=== PATIENT | male | born 1960 | race Caucasian/White ===

== ENCOUNTER 2017-03-25 12:36 | Inpatient (IN) | payer OTHER ==
[2017-03-25] VITALS (14 sets, daily range): BP systolic 122–141; BP diastolic 77–85; PULSE 75–92; RESP 16–20; TEMP 98–98.3; O2SAT 96–98
[~2017-03-25] VITALS: Ht 170.2 cm; Wt 123.5 kg
[2017-03-25] MEDS ORDERED: HEPARIN SODIUM - IV 10,000 UNITS/10 ML VIAL IV ONE (12:45)
--- NOTE | 2017-03-25 12:50 | PD ---
HPI Chief Complaint: STEMI Alert Time Seen by Provider: 12:40 Travel History International Travel<30 days: No Contact w/Intl Traveler<30days: No Traveled to known affect area: No History of Present Illness HPI 56 years old male complains of chest pain. Patient states that it gets pain started about 45 minutes prior to arrival. Patient was chopping wood when it happened. Patient stated the pain did of left sided chest pain substernal chest pressure without radiation. Patient denies palpitation. Patient states that he has nausea and diaphoresis with chest pain. Patient denies history of CAD. Patient denies history hypertension, diabetes, hyperlipidemia. Patient is a nonsmoker. Patient has family history of heart disease. Patient states that he has not seen a physician for time. Patient is not on any routine medication. Patient allergic to any medication. EMS was called. Patient was given aspirin 81 mg 3. Patient was given nitroglycerin sublingual 3. On a scale of 1-10 the chest pain is a 6. PFSH Social History Tobacco Use: No Allergies-Medications (Allergen,Severity, Reaction): Coded Allergies: No Known Allergies (Unverified , 03/25/17) Reported Meds & Prescriptions Reported Meds & Active Scripts Active No Active Prescriptions or Reported Medications Review of Systems General / Constitutional: No: Fever Eyes: No: Visual changes HENT: No: Headaches Cardiovascular: Positive: Chest Pain or Discomfort Respiratory: No: Shortness of Breath Genitourinary: No: Dysuria Musculoskeletal: No: Pain Skin: No Rash Neurologic: No: Weakness Psychiatric: No: Depression Endocrine: No: Polydipsia Hematologic/Lymphatic: No: Easy Bruising Physical Exam Narrative GENERAL: Well-nourished, well-developed patient. SKIN: Focused skin assessment warm/dry. HEAD: Normocephalic. EYES: No scleral icterus. No injection or drainage. NECK: Supple, trachea midline. No JVD or lymphadenopathy. CARDIOVASCULAR: Regular rate and rhythm without murmurs, gallops, or rubs. RESPIRATORY: Breath sounds equal bilaterally. No accessory muscle use. GASTROINTESTINAL: Abdomen soft, non-tender, nondistended. MUSCULOSKELETAL: No cyanosis, or edema. BACK: Nontender without obvious deformity. No CVA tenderness. Neurologic exam normal. Data Data Last Documented VS Vital Signs Date Time Temp Pulse Resp B/P (MAP) Pulse Ox O2 Delivery O2 Flow Rate FiO2 03/25/17 12:40 98 Nasal Cannula 2.00 03/25/17 12:40 74 03/25/17 12:39 98.3 16 128/78 (95) Orders Orders Troponin I (03/25/17 12:40) Ckmb (Isoenzyme) Profile (03/25/17 12:40) Complete Blood Count With Diff (03/25/17 12:40) I-Stat Profile (03/25/17 12:40) I-Stat Creatinine (03/25/17 12:40) Calcium (03/25/17 12:40) Magnesium (Mg) (03/25/17 12:40) Prothrombin Time / Inr (Pt) (03/25/17 12:40) Act Partial Throm Time (Ptt) (03/25/17 12:40) B-Type Natriuretic Peptide (03/25/17 12:40) Chest, Single Ap (03/25/17 12:40) Electrocardiogram (03/25/17 12:40) Oxygen Administration (03/25/17 12:40) Iv Access Insert/Monitor (03/25/17 12:40) Oximetry (03/25/17 12:40) Heparin Inj (Heparin Inj) (03/25/17 12:45) Cbc No Diff, Includes Plts (03/28/17 06:00) Admit Order (Ed Use Only) (03/25/17 12:50) Potassium Chlor 20 Meq Premix (Kcl 20 Me (03/25/17 13:00) CKMB (03/25/17 12:43) CKMB% (03/25/17 12:43) Labs Laboratory Tests Test 03/25/17 12:43 White Blood Count 5.5 TH/MM3 Red Blood Count 4.74 MIL/MM3 Hemoglobin 14.4 GM/DL Bedside Hemoglobin 14.3 G/DL Hematocrit 41.5 % Bedside Hematocrit 42.0 % Mean Corpuscular Volume 87.6 FL Mean Corpuscular Hemoglobin 30.3 PG Mean Corpuscular Hemoglobin Concent 34.6 % Red Cell Distribution Width 13.7 % Platelet Count 204 TH/MM3 Mean Platelet Volume 8.4 FL Neutrophils (%) (Auto) 42.2 % Lymphocytes (%) (Auto) 36.9 % Monocytes (%) (Auto) 12.0 % Eosinophils (%) (Auto) 7.7 % Basophils (%) (Auto) 1.2 % Neutrophils # (Auto) 2.3 TH/MM3 Lymphocytes # (Auto) 2.0 TH/MM3 Monocytes # (Auto) 0.7 TH/MM3 Eosinophils # (Auto) 0.4 TH/MM3 Basophils # (Auto) 0.1 TH/MM3 CBC Comment DIFF FINAL Differential Comment Prothrombin Time 9.9 SEC Prothromb Time International Ratio 1.0 RATIO Activated Partial Thromboplast Time 20.4 SEC Bedside Sodium 143 MMOL/L Bedside Potassium 3.1 MMOL/L Bedside Chloride 102 MMOL/L Bedside Blood Urea Nitrogen 9 MG/DL Bedside Creatinine 0.8 MG/DL Bedside Glucose 150 MG/DL Calcium Level 7.9 MG/DL Magnesium Level 1.8 MG/DL Total Creatine Kinase 258 U/L Creatine Kinase MB 1.2 NG/ML Troponin I 0.05 NG/ML B-Type Natriuretic Peptide 11 PG/ML [facility] Medical Decision Making Medical Screen Exam Complete: Yes Emergency Medical Condition: Yes Interpretation(s) EKG show ST elevation in anterior leads and ST depression and T-wave inversion in inferior leads. Differential Diagnosis Differential diagnosis including STEMI. Narrative Course 56 years with chest pain. EKG consistent with STEMI. Patient was given aspirin 81 mg 3 by EMS. Patient was given Nitrol sublingual 3 by EMS. STEMI alert was called. I spoke with statistics manager Dr. Zamora. Patient was given heparin 4000 units IV given. Aspirin 81 mg 1. Nitro paste 1 inch on chest wall. Morphine 2 mg IV. Patient will be transferred to catheter lab immediately. Potassium 3.1. Patient was given KCl 20 mEq equivalent IV given. Diagnosis Primary Impression: STEMI (ST elevation myocardial infarction) Qualified Codes: I21.3 - ST elevation (STEMI) myocardial infarction of unspecified site Additional Impression: Hypokalemia Admitting Information Admitting Physician Requests: Admit Scripts No Active Prescriptions or Reported Meds Mt Houser MD Mar 25, 2017 12:50
[2017-03-25 12:58] LABS: AUTOMATED NEUTROPHIL # 2.3 TH/MM3 (1.8-7.7); BASOPHIL # 0.1 TH/MM3 (0-0.2); BASOPHIL % 1.2 % (0.0-2.0); EOSINOPHIL # 0.4 TH/MM3 (0-0.4); EOSINOPHIL % 7.7 % (0.0-4.0); HEMATOCRIT 41.5 % (39.0-51.0); HEMOGLOBIN 14.4 GM/DL (13.0-17.0); LYMPH % 36.9 % (9.0-44.0); MEAN CELL VOLUME 87.6 FL (80.0-100.0); MEAN CORPUSCULAR HEMOGLOBIN 30.3 PG (27.0-34.0); MEAN CORPUSCULAR HGB CONC 34.6 % (32.0-36.0); MEAN PLATELET VOLUME 8.4 FL (7.0-11.0); MONOCYTE # 0.7 TH/MM3 (0-0.9); NEUT % 42.2 % (16.0-70.0); PLATELET COUNT 204 TH/MM3 (150-450); RED BLOOD COUNT 4.74 MIL/MM3 (4.50-5.90); RED CELL DISTRIBUTION WIDTH 13.7 % (11.6-17.2); WHITE BLOOD COUNT 5.5 TH/MM3 (4.0-11.0)
[2017-03-25] MEDS ORDERED: POTASSIUM CHLOR 20 MEQ PREMIX 100 ML IV ONE (13:00)
[2017-03-25] MEDS ORDERED: NITROGLYCERIN 2% OINT 1 GM PACKET TOPICAL ONE (13:00)
[2017-03-25] MEDS ORDERED: ASPIRIN 81 MG CHEW TAB CHEW ONE (13:00)
[2017-03-25 13:12] LABS: PROTHROMBIN TIME - PATIENT 9.9 SEC (9.8-11.6)
--- NOTE | 2017-03-25 13:13 | RADRPT ---
EXAM DATE/TIME: 03/25/2017 12:44 [facility] COMPARISON: No previous studies available for comparison. INDICATIONS : Stemi alert. MEDICAL HISTORY : Unobtainable. SURGICAL HISTORY : Unobtainable. ENCOUNTER: Initial ACUITY: 1 day PAIN SCORE: Non-responsive. LOCATION: Bilateral chest FINDINGS: The heart is enlarged. Mild central pulmonary vascular congestion is noted. No focal alveolar consoli dation is noted. CONCLUSION: 1. Cardiomegaly. 2. Mild central pulmonary congestion. Lavon Rowland MD on March 25, 2017 at 13:10 Board Certified Radiologist. This report was verified electronically.
[2017-03-25] MEDS ORDERED: MORPHINE SULFATE 2 MG/ML INJ IV PUSH ONE (13:15)
[2017-03-25 13:19] LABS: CALCIUM 7.9 MG/DL (8.5-10.1); MAGNESIUM 1.8 MG/DL (1.5-2.5)
[2017-03-25] MEDS ORDERED: MIDAZOLAM HCL 2 MG/2 ML VIAL ONE ×3 (13:19→14:13)
[2017-03-25] MEDS ORDERED: HEPARIN-NS/PF INJ 1,000 ML ONE (13:19)
[2017-03-25] MEDS ORDERED: BIVALIRUDIN 250 MG VIAL ONE (13:19)
[2017-03-25 13:22] LABS: TROPONIN I 0.05 NG/ML (0.02-0.05)
[2017-03-25] MEDS ORDERED: STERILE WATER FOR INJECTION 10 ML VIAL ONE (14:04)
[2017-03-25] MEDS ORDERED: CANGRELOR TETRASODIUM 50,000 MCG VIAL ONE ×2 (14:04→16:28)
[2017-03-25] MEDS ORDERED: FUROSEMIDE 40 MG/4 ML VIAL ONE (14:07)
[2017-03-25] MEDS ORDERED: TICAGRELOR 90 MG TAB PO ONE ×3 (14:20→17:00)
[2017-03-25] MEDS ORDERED: ONDANSETRON HCL 4 MG/2 ML VIAL IV PUSH PRN (14:30)
[2017-03-25] MEDS ORDERED: CANGRELOR INJ 50,000 MCG in SODIUM CHLOR 0.9% 250 ML INJ 250 ML IV ONE (14:30)
[2017-03-25] MEDS ORDERED: MISC INFORMATION XX ONE (14:30)
[2017-03-25] MEDS ORDERED: ATROPINE SULFATE 1 MG/ML VIAL IV PUSH PRN (14:30)
--- NOTE | 2017-03-25 14:30 | PD.CONS ---
HPI Consult Requested By Primary Care Physician Unknown History of Present Illness 56 years old male complains of chest pain. Patient states that it gets pain started about 45 minutes prior to arrival. Patient was chopping wood when it happened. Patient stated the pain did of left sided chest pain substernal chest pressure without radiation. Patient denies palpitation. Patient states that he has nausea and diaphoresis with chest pain. Patient denies history of CAD. Patient denies history hypertension, diabetes, hyperlipidemia. Patient is a nonsmoker. Patient has family history of heart disease. Patient states that he has not seen a physician for time. Patient is not on any routine medication. Patient allergic to any medication. EMS was called. Patient was given aspirin 81 mg 3. Patient was given nitroglycerin sublingual 3. On a scale of 1-10 the chest pain is a 6. EKG anterior ST elevation. STEMI alert activated Review of Systems Consitutional: DENIES: Fatigue, Fever, Chills, Weight gain, Weight loss Eyes: DENIES: Amaurosis Fugax, Change in vision HEENT: DENIES: Lightheadedness, Change in hearing Respiratory: DENIES: See HPI, Cough, Snoring, Shortness of breath, Wheezing, Sputum production Cardiovascular: COMPLAINS OF: See HPI, Chest pain, DENIES: Palpitations, Syncope, Tachycardia Gastrointestinal: DENIES: Nausea, Vomiting, Change in bowel habits, Reflux, Bloody stools, Melena Genitourinary: DENIES: Urinary incontinence, Difficulty voiding Integumentary: DENIES: Rash Neurologic: DENIES: Tingling or numbness, Memory problems, Poor Balance, Stroke symptoms Musculoskeletal: DENIES: Joint pain, Muscle pain, Limited range of motion, Back pain Psychiatric: DENIES: Anxiety, Depression, Sleep disturbances Hematologic: DENIES: Bruising tendencies, Bleeding tendencies Endocrine: DENIES: Weight gain, Weight loss, Thyroid disease Past Family Social History Allergies: Coded Allergies: No Known Allergies (Unverified , 03/25/17) Reported Medications Reported Meds & Active Scripts Active No Active Prescriptions or Reported Medications Active Ordered Medications Current Medications Medications (Trade) Dose Ordered Sig/Leda Route Start Time Stop Time Status Last Admin Potassium Chloride 100 ml @ 50 mls/hr BOLUS ONCE IV 03/25/17 13:00 03/25/17 14:59 03/25/17 13:13 Physical Exam Vital Signs Vital Signs Date Time Temp Pulse Resp B/P (MAP) Pulse Ox O2 Delivery O2 Flow Rate FiO2 03/25/17 13:20 03/25/17 13:14 87 16 141/77 (98) 98 Nasal Cannula 2.00 03/25/17 12:40 98 Nasal Cannula 2.00 03/25/17 12:40 74 03/25/17 12:39 98.3 75 16 128/78 (95) 98 Physical Exam GENERAL: Well-nourished, well-developed patient. SKIN: Warm and dry. HEAD: Normocephalic. EYES: No scleral icterus. No injection or drainage. NECK: Supple, trachea midline. No JVD or lymphadenopathy. CARDIOVASCULAR: Regular rate and rhythm without murmurs, gallops, or rubs. RESPIRATORY: Breath sounds equal bilaterally. No accessory muscle use. GASTROINTESTINAL: Abdomen soft, non-tender, nondistended. EXTREMITIES: No cyanosis, or edema. NEUROLOGICAL: Awake, alert, and oriented x 3. Non-focal. Laboratory Laboratory Tests Test 03/25/17 12:43 White Blood Count 5.5 Red Blood Count 4.74 Hemoglobin 14.4 Bedside Hemoglobin 14.3 Hematocrit 41.5 Bedside Hematocrit 42.0 Mean Corpuscular Volume 87.6 Mean Corpuscular Hemoglobin 30.3 Mean Corpuscular Hemoglobin Concent 34.6 Red Cell Distribution Width 13.7 Platelet Count 204 Mean Platelet Volume 8.4 Neutrophils (%) (Auto) 42.2 Lymphocytes (%) (Auto) 36.9 Monocytes (%) (Auto) 12.0 Eosinophils (%) (Auto) 7.7 Basophils (%) (Auto) 1.2 Neutrophils # (Auto) 2.3 Lymphocytes # (Auto) 2.0 Monocytes # (Auto) 0.7 Eosinophils # (Auto) 0.4 Basophils # (Auto) 0.1 CBC Comment DIFF FINAL Differential Comment Prothrombin Time 9.9 Prothromb Time International Ratio 1.0 Activated Partial Thromboplast Time 20.4 Bedside Sodium 143 Bedside Potassium 3.1 Bedside Chloride 102 Bedside Blood Urea Nitrogen 9 Bedside Creatinine 0.8 Bedside Glucose 150 Calcium Level 7.9 Magnesium Level 1.8 Total Creatine Kinase 258 Creatine Kinase MB 1.2 Troponin I 0.05 B-Type Natriuretic Peptide 11 Result Diagram: 03/25/17 1243 Imaging Last Impressions Chest X-Ray 03/25/17 1240 Signed Impressions: Service Date/Time: Saturday, March 25, 2017 12:44 - CONCLUSION: 1. Cardiomegaly. 2. Mild central pulmonary congestion. Lavon Rowland MD Assessment and Plan Problem List: (1) STEMI (ST elevation myocardial infarction) ICD Codes: I21.3 - ST elevation (STEMI) myocardial infarction of unspecified site Status: Acute Plan: Active Cath Team for emergent PCI Keep NPO Heparin, ASA, Nitrates, Supplemental O2 Risk benefits of LHC +/- PCI explained. He agrees to proceed Further management to be determine (2) Hypokalemia ICD Codes: E87.6 - Hypokalemia Status: Acute Problem Qualifiers (1) STEMI (ST elevation myocardial infarction): Qualified Codes: I21.3 - ST elevation (STEMI) myocardial infarction of unspecified site Sae Dozier MD Mar 25, 2017 14:30
--- NOTE | 2017-03-25 14:40 | CATHPROC ---
[facility] Report Study Information Study Number Admission Scheduled Start Study Start [id number] Mar 25 2017 12:53PM 03/25/2017 Mar 25 2017 1:12PM [place] Service Cardiac Catheterization Admit Source Facility Department Emergency department [facility] - [facility] [employer] Operator Physician and Clinical Staff Initial Sae Lara Operator/Assistant Foreman Sherrie Novoa BSN Operator/Assistant Foreman Sheri Duron,SOPHY Recorder Calli Delaney,RT(R) (BS) Scrub Juan ChaRT(R) Procedures Performed Procedure Location (Site) Vessel Name Coronary Angiograms LCA Left Coronary Coronary Angiograms RCA Right Coronary Drug Eluting Inflatio LAD Prox Left Coronary PTCA DIAG Ost Left Coronary PTCA LAD Prox Left Coronary Wire insertion Fem Art (right) Femoral Art Equipment Time Bean Picker Machine Operator Description Size Mfg Part Number Used/Scraped PERCLOSE, PRO GLIDE CLOSER 14:18 [employer] FR 6 [id number] *[id number] Used DEVICE WIRE, BALANCE MIDDLEWEIGHT [id number] 13:55 [employer] 190CM Used 190CM *[id number] TRANSDUCER, TRUWAVE [id number] 13:32 QUINTANILLA FOSTER * Used W/STOCKCOCK *[id number] INTRODUCER SET, 13:32 [employer] FR 5 [id number] *[id number] Used MICROPUNCTURE, STIFFENED INTRODUCER SET, 13:44 [employer] FR 5 [id number] *[id number] Used MICROPUNCTURE, STIFFENED [id number] *[id number] 13:32 [employer] PACK, CCL CUSTOM * Used *[id number] 13:50 [employer] BALLOON, 2.5 X 6MM EUPHORA 6MM Used *[id number] 13:56 [employer] STENT, 3.0 15MM LOU 3.0 15MM Used *[id number] 13:37 [employer]/AVE EBU 3.5 Z2 GUIDE CATHETER FR 6 Used *[id number] 14:02 Estate Assist MEDICAL 30 KENNETH INDEFLATOR Used *[id number] 13:54 [employer] 30 KENNETH INDEFLATOR Used *[id number] 13:32 Estate Assist MEDICAL WIRE, 3MMJ .035 180CM 180CM Used *[id number] 13:32 [facility], 4 PORT * Used *[id number] 13:32 [employer] OMNIPAQUE, 350 MG, 150ML 150ML [id number] Used 14:03 [employer] OMNIPAQUE, 350 MG, 50ML 50ML [id number] Used 14:26 [employer] OMNIPAQUE, 350 MG, 50ML 50ML [id number] Used [id number] 13:32 [employer],WARM AIR CCL * Used *[id number] 13:47 [employer] SHEATH, FR6 TERUMO (10CM) FR 6 Used *[id number] WIRE, RUNTHROUGH NS FLOPPY [id number] 13:49 [employer]ICAL 180CM Used .014 180CM *[id number] Equipment Model, Serial, Lot Number and Expiration Data Description Model Number Serial Number Lot Number Expiration Date INTRODUCER SET, [id number] 02-02-2020 MICROPUNCTURE, STIFFENED STENT, 3.0 15MM LOU [id number] 11-05-2018 History: Current Medications Medication Dosage/Unit Route Frequency Last Date/Time Taken ASA NTG SL NTG Patch HEPARIN History: Allergies Allergy Reaction No Known Allergies History: Risk Factors Family History of Hypertension Dyslipidemia Previous [facility] Previous Heart Failure Premature CAD No No Yes No No Prior Valve Prior PCI Prior CABG Surgery No No No Cerebrovascular Peripheral Artery Chronic Lung On Dialysis Diabetes Disease Disease Disease No No No No No History: Symptoms/Diagnosis Selection Items Chest pain History: Stress Tests Stress or Imaging Studies Performed No History: Other Current Smoker No Labs Hgb (g/dl) Hct (%) RBC (MIL/MM3) WBC (l/cumm) Platelets (thousands) 11.60-17.00 35.00-51.00 4.00-5.90 4.00-11.00 150.00-450.00 14.4 41.5 4.4 5.5 204 Glucose (mg/dl) BUN (mg/dl) Creatinine (mg/dl) BUN:Creatinine (1:x) 74.00-106.00 7.00-18.00 0.50-1.30 10.00-20.00 150 9 0.8 11.3 Na (meq/l) K (meq/l) Cl (meq/l) Ca (mg/dl) 136.00-145.00 3.50-5.10 98.00-107.00 8.50-10.10 143 3.1 102 7.9 INR (PTT:PT) 0.90-1.10 1 Troponin I (ng/ml) CPK-MB (ng/ML) 0.02-0.05 0.50-3.60 0.05 1.2 Medication Medication Total Dose (Bolus/Oral) Medication Total Dosage/Unit 1% XYLOCAINE 20 mL BRILINTA 180 mg FENTANYL 150 mcg HEPARIN 9100 units LASIX 40 mg VERSED 7 mg Medications (Bolus/Oral) Medication Time Given Dosage/Unit Administered By Reason 1% XYLOCAINE 03/25/2017 1:40:00 PM 20 mL Zamora-Zain, Sae 20 mL 1% XYLOCAINE given in lab by ChesterZain Sae in Right Groin via Subcutaneous. VERSED 03/25/2017 1:40:45 PM 2 mg Sommer Sherrie 2 mg VERSED given in lab by Sherrie Novoa BSN in Left Hand via Peripheral IV. FENTANYL 03/25/2017 1:41:53 PM 50 mcg Sherrie Novoa 50 mcg FENTANYL given in lab by Sherrie Novoa BSN in Left Hand via Peripheral IV. VERSED 03/25/2017 1:45:35 PM 1 mg Sommer Sherrie 1 mg VERSED given in lab by Sherrie Novoa BSN in Left Hand via Peripheral IV. FENTANYL 03/25/2017 1:46:50 PM 25 mcg Sherrie Novoa 25 mcg FENTANYL given in lab by Sherrie Novoa BSN in Left Hand via Peripheral IV. HEPARIN 03/25/2017 1:50:21 PM 9100 units Sherrie Novoa 9100 units HEPARIN given in lab by Sherrie Novoa BSN in Left Hand via Peripheral IV. VERSED 03/25/2017 1:59:29 PM 2 mg Alida Novoaanda 2 mg VERSED given in lab by Sherrie Novoa BSN in Left Hand via Peripheral IV. FENTANYL 03/25/2017 1:59:53 PM 25 mcg Sommer Sherrie 25 mcg FENTANYL given in lab by Sherrie Novoa BSN in Left Hand via Peripheral IV. VERSED 03/25/2017 2:01:01 PM 1 mg Sherrie Novoa 1 mg VERSED given in lab by Sherrie Novoa BSN in Left Hand via Peripheral IV. FENTANYL 03/25/2017 2:07:18 PM 50 mcg Sherrie Novoa 50 mcg FENTANYL given in lab by Sherrie Novoa BSN in Left Hand via Peripheral IV. LASIX 03/25/2017 2:08:52 PM 40 mg Sherrie Novoa 40 mg LASIX given in lab by Sherrie Novoa BSN in Left Hand via Peripheral IV. VERSED 03/25/2017 2:15:21 PM 1 mg Sherrie Novoa 1 mg VERSED given in lab by Sherrie Novoa BSN in Left Hand via Peripheral IV. BRILINTA 03/25/2017 2:40:39 PM 180 mg Sherrie Novoa 180 mg BRILINTA given in lab by Sherrie Novoa BSN via Oral. Medication (Drip) Medication Time Given Dosage/Unit Concentration/Unit Diluent (ml) Solution IV Solutions 03/25/2017 1:30:19 PM 0 mL (IV) 1000 NaCl .9 Patient arrived on IV Solutions in Left Hand via Peripheral IV. Pump/Drip Flow = 30 ml/hr using NaCl .9. KENGREAL BOLUS 03/25/2017 2:24:23 PM 19.5 mL 19.5 mL KENGREAL BOLUS given in lab by Sherrie Novoa BSN in Left Hand via Peripheral IV. KENGREAL DRIP 03/25/2017 2:24:33 PM 4 mcg/kg/min 50 mg 250 NaCl .9 4 mcg/kg/min KENGREAL DRIP given in lab by Sherrie Novoa BSN in Left Hand via Peripheral IV. P ump/Drip Flow = 156 ml/hr using NaCl .9 with a concentration of 50 mg in 250 ml. POTASSIUM DRIP 03/25/2017 1:30:19 PM 5 meq/hr 20 meq 100 D5W .9 NaCl Patient arrived on 5 meq/hr POTASSIUM DRIP. Pump/Drip Flow = 25 ml/hr using D5W .9 NaCl with a concen tration of 20 meq in 100 ml. Initial Case Assessment Cardiovascular HR Rhythm NIBP Chest Pain 84 reg 154/89 6 Edema Present Skin color Skin None Normal Warm Dry Circulatory - Right Pulses Dorsalis Pedis Femoral 2 2 Scale (0,1,2,3,4,d) Circulatory - Left Pulses Dorsalis Pedis Femoral 2 2 Scale (0,1,2,3,4,d) Circulatory - Lower Extremities Color Lower Right Color Lower Left Normal Normal Neurological State Oriented to time-place- Alert Moves all extremities person Respiration - General Respiration Rate SpO2 (%) O2 (lpm) (B/min) 10 99 2 Chronological Log Time Study Chronological Log 13:16:26 Emergency Room notified that Digital Color Press Operator is ready. 13:23:45 Patient arrived via Bed. 13:24:10 Disposable Defibrillator Pads Placed On Patient. 13:26:48 Patient Name, D.O.B, / Armband Verified By R.N. 13:26:49 Consent signed by the physician and the patient and verified by the [employer] Operator staff. 13:26:49 Pre-op and post- op instructions given; patient acknowledges understanding of instructions. Vitals capture started with the following parameters, Patient=Adult, Interval=5 min, Initial Pr cnsxnq=280 mmHg, 13:29:58 Deflation Rate=5 mmHg, Cuff placed on Left Arm 13:30:00 Verbal Stimulation=2 Physical Stimulation=2 Airway=2 Respiration=2 TOTAL=8. (0=absent, 1=li mited, 2=present) 13:30:01 Presedation assessment performed by [employer] Operator RN. 13:30:16 Andrei Prominences Protected 13:30:17 A # 18 IV was noted in the Hand (left). Grade = 0 13:30:18 A # 18 IV was noted in the Antecubital (right). Grade = 0 13:30:19 Patient arrived on IV Solutions in Left Hand via Peripheral IV. Pump/Drip Flow = 30 ml/hr u sing NaCl .9. Patient arrived on 5 meq/hr POTASSIUM DRIP. Pump/Drip Flow = 25 ml/hr using D5W .9 NaCl with a concentration of 13:30:19 20 meq in 100 ml. 13:30:20 History and physical on the chart or being dictated. Assessment: Initial Case, HR=84 BPM, Rhythm=reg, HJXU=994/89 mmhg, Chest Pain=6, Edema=None, Co kalpana=Normal, Skin = Warm, Dry Right Pulses: Cirilo Ped=2, Femoral=2 Left Pulses: Cirilo Ped=2, Femoral=2 13:30:21 Lower Right Extremities: Color=Normal Lower Left Extremities: Color=Normal Neurological: State=Alert, Ox3, MAHAJAN Respiration: Resp=10 B/min, SpO2=99 %, O2=2 lpm 13:30:41 HR=87 bpm, KQCL=561/89 mmhg, SpO2=97.0 %, Resp=13 B/min, Pain=6, Chichi=10, Sanz=2 13:34:27 MD paged 13:34:37 Reference ECG taken 13:34:50 MD responded 13:35:00 Pressure channel 1 zeroed. 13:35:38 HR=89 bpm, YOWY=007/94 mmhg, SpO2=99.0 %, Resp=8 B/min, Pain=6, Chichi=10, Sanz=2 13:38:56 MD arrived. Time Out. Correct patient, correct procedure, correct physician, power injector not loaded with contrast with surgical 13:39:37 team present. Time Out Concurred by MD and individual staff in procedure. 13:39:44 Case Start 13:40:00 20 mL 1% XYLOCAINE given in lab by Sae Dozier in Right Groin via Subcutaneous. 13:40:37 HR=88 bpm, AAIK=076/96 mmhg, SpO2=98.0 %, Resp=16 B/min, Pain=6, Chichi=10, Sanz=2 13:40:45 2 mg VERSED given in lab by Sherrie Novoa BSN in Left Hand via Peripheral IV. 13:41:53 50 mcg FENTANYL given in lab by Sherrie Novoa BSN in Left Hand via Peripheral IV. 13:43:53 Holding pressure on right groin. 13:45:16 Access site was Right Femoral Artery. A INTRODUCER SET, MICROPUNCTURE, STIFFENED FR 5 was advanced into the Fem Art (right) using the :45:21 Percutaneous technique. A SHEATH, FR6 TERUMO (10CM) FR 6 was exchanged in the Fem Art (right). This was necessary in or lisa to :45:27 accomodate a larger catheter. 13:45:35 1 mg VERSED given in lab by Sherrie Novoa BSN in Left Hand via Peripheral IV. 13:45:38 HR=87 bpm, FRRK=837/86 mmhg, SpO2=94.0 %, Resp=16 B/min, Pain=6, Chichi=10, Sanz=2 A JR 4.0 INFINITI CATHETER FR 5 was advanced over a wire. OMNIPAQUE, 350 MG, 150ML 150ML was us ed for 13:45:58 injections. Recorded Pressure: Ao, HR=94, Condition=Condition 1 13:46:24 (Aorta) Ao 125/83/105 13:46:50 25 mcg FENTANYL given in lab by Sherrie Novoa BSN in Left Hand via Peripheral IV. 13:46:55 The RCA was injected and visualized at various angles. OMNIPAQUE, 350 MG, 150ML 150ML used . 13:47:20 Catheter was removed A EBU 3.5 Z2 GUIDE CATHETER FR 6 was advanced over a wire. OMNIPAQUE, 350 MG, 150ML 150ML was u sed for 13:47:23 injections. Recorded Pressure: Ao, HR=97, Condition=Condition 1 13:49:08 (Aorta) Ao 131/90/110 13:49:21 The LCA was injected and visualized at various angles. OMNIPAQUE, 350 MG, 150ML 150ML used . 13:49:55 A WIRE, RUNTHROUGH NS FLOPPY .014 180CM 180CM was inserted via Fem Art (right). 13:50:21 9100 units HEPARIN given in lab by Sherrie Novoa BSN in Left Hand via Peripheral IV. 13:50:35 WT=734 bpm, QBFD=553/98 mmhg, SpO2=89.0 %, Resp=16 B/min, Pain=6, Chichi=10, Sanz=2 13:51:10 Interventional wire has crossed the lesion A BALLOON, 2.5 X 6MM EUPHORA 6MM was inserted over WIRE, RUNTHROUGH NS FLOPPY .014 180CM 180CM via 13:51:40 the Fem Art (right). A BALLOON, 2.5 X 6MM EUPHORA 6MM over a WIRE, RUNTHROUGH NS FLOPPY .014 180CM 180CM in the LAD Prox 13:54:03 was inflated using a 30 KENNETH INDEFLATOR at 8 kenneth for 10 sec. 13:55:40 HR=96 bpm, PVBH=233/92 mmhg, SpO2=94.0 %, Resp=17 B/min, Pain=6, Chichi=10, Sanz=2 13:56:01 A WIRE, BALANCE MIDDLEWEIGHT 190CM 190CM was inserted via Fem Art (right). A STENT, 3.0 15MM LOU 3.0 15MM was advanced through a EBU 3.5 Z2 GUIDE CATHETER FR 6 over a WI RE, 13:57:32 RUNTHROUGH NS FLOPPY .014 180CM 180CM. A STENT, 3.0 15MM LOU 3.0 15MM was deployed using a 30 KENNETH INDEFLATOR at 14 atmospheres for 20 seconds in 13:59:01 the LAD Prox. 13:59:29 2 mg VERSED given in lab by Sherrie Novoa BSN in Left Hand via Peripheral IV. 13:59:49 Delivery device removed 13:59:53 25 mcg FENTANYL given in lab by Sherrie Novoa BSN in Left Hand via Peripheral IV. 14:00:39 HR=94 bpm, LLQF=826/93 mmhg, SpO2=94.0 %, Resp=19 B/min, Pain=6, Chichi=10, Sanz=2 14:01:01 1 mg VERSED given in lab by Sherrie Novoa BSN in Left Hand via Peripheral IV. A BALLOON, 2.5 X 6MM EUPHORA 6MM was inserted over WIRE, BALANCE MIDDLEWEIGHT 190CM 190CM via t he 14:03:53 Fem Art (right). A STENT baloon, 3.0 15MM LOU 3.0 15MM was advanced through a EBU 3.5 Z2 GUIDE CATHETER FR 6 ov er a WIRE, 14:05:20 RUNTHROUGH NS FLOPPY .014 180CM 180CM. 14:06:36 HR=99 bpm, ZCUV=077/88 mmhg, SpO2=94.0 %, Resp=19 B/min, Pain=6, Chichi=10, Sanz=2 14:06:59 Balloon Removed 14:07:18 50 mcg FENTANYL given in lab by Sherrie Novoa BSN in Left Hand via Peripheral IV. 14:07:25 Delivery device removed 14:07:53 Wire removed bmw 14:08:19 A WIRE, BALANCE MIDDLEWEIGHT 190CM 190CM was inserted via Fem Art (right). 14:08:52 40 mg LASIX given in lab by Sherrie Novoa BSN in Left Hand via Peripheral IV. 14:10:39 QV=167 bpm, AWKC=265/90 mmhg, SpO2=91.0 %, Resp=13 B/min, Pain=6, Chichi=10, Sanz=2 A BALLOON, 2.5 X 6MM EUPHORA 6MM was inserted over WIRE, BALANCE MIDDLEWEIGHT 190CM 190CM via t he 14:10:42 Fem Art (right). A STENT baloon, 3.0 15MM LOU 3.0 15MM was advanced through a EBU 3.5 Z2 GUIDE CATHETER FR 6 ov er a WIRE, 14:11:48 RUNTHROUGH NS FLOPPY .014 180CM 180CM. 14:14:23 Re-inflated the stent balloon in the LAD Prox to 5 KENNETH for 15 seconds. A BALLOON, 2.5 X 6MM EUPHORA 6MM over a WIRE, BALANCE MIDDLEWEIGHT 190CM 190CM in the DIAG Ost was 14:14:23 inflated using a 30 KENNETH INDEFLATOR at 5 kenneth for 15 sec. 14:15:21 1 mg VERSED given in lab by Sherrie Novoa BSN in Left Hand via Peripheral IV. 14:15:40 HR=96 bpm, OKUW=985/89 mmhg, SpO2=92.0 %, Resp=13 B/min, Pain=6, Chichi=10, Sanz=2 14:17:20 Delivery device removed 14:17:20 Balloon Removed 14:17:20 Wire removed 14:17:20 Wire removed 14:18:40 An injection in the Fem Art (right) was made through the SHEATH, FR6 TERUMO (10CM) FR 6. 14:19:25 PERCLOSE, PRO GLIDE CLOSER DEVICE FR 6 placement in the Fem Art (right) 14:20:43 HR=90 bpm, MKXT=450/81 mmhg, SpO2=92.0 %, Resp=10 B/min 14:22:03 Case End 14:22:30 Catheter(s) removed without difficulty 14:22:36 No case complications noted. 14:22:55 Bedside Report will be given. 14:22:57 Implantable Device card placed in patient's chart. 14:24:23 19.5 mL KENGREAL BOLUS given in lab by Sherrie Novoa BSN in Left Hand via Periphera l IV. 4 mcg/kg/min KENGREAL DRIP given in lab by Sherrie Novoa BSN in Left Hand via Periphera l IV. Pump/Drip 14:24:33 Flow = 156 ml/hr using NaCl .9 with a concentration of 50 mg in 250 ml. 14:25:42 HR=93 bpm, MQNW=961/87 mmhg, SpO2=96.0 %, Resp=17 B/min, Pain=6, Chichi=10, Sanz=2 14:29:36 Sterile dressing applied to site 14:31:10 HR=88 bpm, XMOS=778/91 mmhg, Resp=18 B/min, Pain=6, Chichi=10, Sanz=2 14:33:41 Vitals capture stopped. 14:38:41 [facility] [place] [facility] 14:40:39 180 mg BRILINTA given in lab by Sherrie Novoa BSN via Oral. End Study - Contrast Media Used In Study Contrast Total Opened (mL) Total Used (mL) Total Wasted (mL) Omnipaque 140 140 0 End Study - Maximum Contrast Load Max Contrast Load (mL) 812.5 End Study - Radiation Exposure Fluoro Time (minutes) 15.9 End Study - Sheaths Sheaths Pulled By Sheath Hold Time (min) Sae Dozier End Study - Patient Disposition Complications Transferred To Interventional Outcome No Telemetry Bed successful
[2017-03-25] MEDS ORDERED: HEPARIN SODIUM - IV 10,000 UNITS/10 ML VIAL ONE (15:16)
--- NOTE | 2017-03-25 16:12 | PD.CONS ---
[facility] Consult Requested By DR CRISTAL PLUMMER Reason for Consult MEDICAL MANAGEMENT Primary Care Physician Unknown Diagnoses: (1) STEMI (ST elevation myocardial infarction) (2) Hypokalemia History of Present Illness Patient is a 56 years old male who presented to the emergency department here at [facility] with complaint of chest pain. Patient stated that the pain started about 45 minutes prior to arrival. Patient was chopping wood when it happened. Patient stated the pain was in the left side of chest with pain and substernal chest pressure without radiation. Patient denies palpitation. Patient states that he had nausea and diaphoresis with the chest pain. Patient denies history of CAD. Patient denies history hypertension, diabetes, hyperlipidemia. Patient is a nonsmoker. Patient has family history of heart disease father had coronary artery disease and CABG 4 vessels. Patient states that he has not seen a physician for an extended time. Patient is not on any routine medication. Patient is not allergic to any medication. EMS was called. Patient was given aspirin 81 mg 3. Patient was given nitroglycerin sublingual 3. On a scale of 1-10 the chest pain is a 6. Patient was found to have an ST elevation GA and was emergently taken to the cardiac catheter lab by Dr. Plummer. Patient was found to have stenosis of the LAD and underwent 2 stents to the LAD by Dr. Plummer in the cardiac catheterization lab Review of Systems Constitutional: COMPLAINS OF: Fatigue, DENIES: Diaphoretic episodes, Fever, Weight gain, Weight loss, Chills, Dizziness, Change in appetite, Night Sweats Endocrine: DENIES: Heat/cold intolerance, Polydipsia, Polyuria, Polyphagia Eyes: DENIES: Blurred vision, Diplopia, Eye inflammation, Eye pain, Vision loss , Photosensitivity, Double Vision Ears, nose, mouth, throat: DENIES: Tinnitus, Hearing loss, Vertigo, Nasal discharge, Oral lesions, Throat pain, Hoarseness, Ear Pain, Running Nose, Odynophagia Respiratory: DENIES: Apneas, Cough, Snoring, Wheezing, Hemoptysis, Sputum production Cardiovascular: COMPLAINS OF: Chest pain, DENIES: Palpitations, Syncope, Dyspnea on Exertion, PND, Lower Extremity Edema, Orthopnea, Claudication Gastrointestinal: DENIES: Abdominal pain, Black stools, Bloody stools, Constipation, Diarrhea Musculoskeletal: DENIES: Joint pain, Muscle aches, Stiffness, Joint Swelling, Back pain Integumentary: DENIES: Abnormal pigmentation, Nail changes, Pruritus, Rash Hematologic/lymphatic: DENIES: Bruising, Lymphadenopathy Immunologic/allergic: DENIES: Eczema, Urticaria Neurologic: DENIES: Abnormal gait, Headache, Localized weakness, Paresthesias, Seizures, Speech Problems, Tremor Psychiatric: DENIES: Anxiety, Confusion, Mood changes, Depression, Hallucinations, Agitation, Suicidal Ideation, Homicidal Ideation Except as stated in HPI: all other systems reviewed are Neg Past Family Social History Allergies: Coded Allergies: No Known Allergies (Unverified , 03/25/17) Past Medical History Hernia repairs Past Surgical History Hernia repair 3 Reported Medications Reported Meds & Active Scripts Active No Active Prescriptions or Reported Medications Active Ordered Medications Current Medications Heparin Sodium (Porcine) (Heparin Inj) 4,000 units ONCE ONCE IV Last administered on 03/25/17at 12:49; Start 03/25/17 at 12:45; Stop 03/25/17 at 12:46; Status DC Potassium Chloride 100 ml @ 50 mls/hr BOLUS ONCE IV Last administered on at 13:13; Start 03/25/17 at 13:00; Stop 03/25/17 at 14:59; Status DC Nitroglycerin (Nitroglycerin 2% Oint) 1 inch ONCE ONCE TOPICAL Last administered on 03/25/17 13:06; Start 03/25/17 at 13:00; Stop 03/25/17 at 13:01; Status DC Aspirin (Aspirin Chew) 81 mg ONCE ONCE CHEW Last administered on 03/25/17at 13: 06; Start 03/25/17 at 13:00; Stop 03/25/17 at 13:01; Status DC Morphine Sulfate (Morphine Inj) 2 mg ONCE ONCE IV PUSH Last administered on 03/25/17at 13:19; Start 03/25/17 at 13:15; Stop 03/25/17 at 13:16; Status DC Heparin Sodium/ Sodium Chloride 1,000 ml @ As Directed STK-MED ONCE .ROUTE Last administered on 03/25/17at 13:19; Start 03/25/17 at 13:19; Stop 03/25/17 at 13: 20; Status DC Bivalirudin (Angiomax Inj) 250 mg STK-MED ONCE .ROUTE ; Start 03/25/17 at 13:19; Stop 03/25/17 at 13:20; Status DC Midazolam HCl (Versed Inj) 2 mg STK-MED ONCE .ROUTE Last administered on at 13:40; Start 03/25/17 at 13:19; Stop 03/25/17 at 13:20; Status DC Fentanyl Citrate (fentaNYL INJ) 100 mcg STK-MED ONCE .ROUTE Last administered on 03/25/17at 13:41; Start 03/25/17 at 13:19; Stop 03/25/17 at 13:20; Status DC Midazolam HCl (Versed Inj) 2 mg STK-MED ONCE .ROUTE Last administered on at 13:45; Start 03/25/17 at 13:40; Stop 03/25/17 at 13:41; Status DC Cangrelor (Kengreal Inj) 50,000 mcg STK-MED ONCE .ROUTE ; Start 03/25/17 at 14:04 ; Stop 03/25/17 at 14:05; Status DC Sterile Water (Sterile Water For Injection) 10 ml STK-MED ONCE .ROUTE ; Start at 14:04; Stop 03/25/17 at 14:05; Status DC Fentanyl Citrate (fentaNYL INJ) 100 mcg STK-MED ONCE .ROUTE Last administered on 03/25/17at 14:07; Start 03/25/17 at 14:06; Stop 03/25/17 at 14:07; Status DC Furosemide (Lasix Inj) 40 mg STK-MED ONCE .ROUTE Last administered on 03/25/17at 14:08; Start 03/25/17 at 14:07; Stop 03/25/17 at 14:08; Status DC Midazolam HCl (Versed Inj) 2 mg STK-MED ONCE .ROUTE Last administered on at 14:15; Start 03/25/17 at 14:13; Stop 03/25/17 at 14:14; Status DC Ticagrelor (Brilinta) 180 mg STK-MED ONCE PO ; Start 03/25/17 at 14:20; Stop 03/25 at 14:21; Status DC Aspirin (Aspirin Chew) 81 mg DAILY PO ; Start 03/26/17 at 09:00 Ticagrelor (Brilinta) 180 mg NOW ONCE PO Last administered on 03/25/17at 14:40; Start 03/25/17 at 14:30; Stop 03/25/17 at 14:31; Status DC Ticagrelor (Brilinta) 90 mg BID PO ; Start 03/25/17 at 21:00 Cangrelor 21503 mcg/Sodium Chloride 250 ml @ 0 mls/hr ONCE ONCE IV Last administered on 03/25/17at 14:25; Start 03/25/17 at 14:30; Stop 03/25/17 at 14:31; Status DC Miscellaneous Information 1 ONCE ONCE XX ; Start 03/25/17 at 14:30; Stop at 14:31; Status DC Atropine Sulfate (Atropine Inj) 0.5 mg UNSCH PRN IV PUSH VAGAL REPONSE; Start 03/25/17 at 14:30 Ondansetron HCl (Zofran Inj) 4 mg Q4H PRN IV PUSH NAUSEA; Start 03/25/17 at 14: 30 Metoprolol Tartrate (Lopressor) 12.5 mg BID PO ; Start 03/25/17 at 21:00 Lisinopril (Prinivil) 5 mg DAILY PO ; Start 03/26/17 at 09:00 Atorvastatin Calcium (Lipitor) 10 mg HS PO ; Start 03/25/17 at 21:00 Heparin Sodium (Porcine) (Heparin Inj) 10,000 units [employer] ONCE .ROUTE Last administered on 03/25/17at 13:50; Start 03/25/17 at 15:16; Stop 03/25/17 at 15:17; Status DC Family History Coronary artery disease in his father father had bypass surgery in 60s of four- vessel and in his 90s Mother is alive at 88 with no medical problems per patient Social History denies tobacco positive alcohol abuse 4 beers every few days Physical Exam Vital Signs Vital Signs Date Time Temp Pulse Resp B/P (MAP) Pulse Ox O2 Delivery O2 Flow Rate FiO2 03/25/17 13:20 03/25/17 13:14 87 16 141/77 (98) 98 Nasal Cannula 2.00 03/25/17 12:40 98 Nasal Cannula 2.00 03/25/17 12:40 74 03/25/17 12:39 98.3 75 16 128/78 (95) 98 Physical Exam GENERAL: This is a well-nourished, well-developed patient, in no apparent distress. SKIN: No rashes, ecchymoses or lesions. Cool and dry. HEAD: Atraumatic. Normocephalic. No temporal or scalp tenderness. EYES: Pupils equal round and reactive. Extraocular motions intact. No scleral icterus. No injection or drainage. ENT: Nose without bleeding, purulent drainage or septal hematoma. Throat without erythema, tonsillar hypertrophy or exudate. Uvula midline. Airway patent. NECK: Trachea midline. No JVD or lymphadenopathy. Supple, nontender, no meningeal signs. CARDIOVASCULAR: Regular rate and rhythm without murmurs, gallops, or rubs. S1, S2 NO S3 OR S4 NO HEAVE OR THRILL RESPIRATORY: Clear to auscultation. Breath sounds equal bilaterally. No wheezes , rales, or rhonchi. GASTROINTESTINAL: Abdomen soft, non-tender, nondistended. No hepato-splenomegaly , or palpable masses. No guarding. OBESE MUSCULOSKELETAL: Extremities without clubbing, cyanosis, or edema. No joint tenderness, effusion, or edema noted. No calf tenderness. Negative Homans sign bilaterally. NEUROLOGICAL: Awake and alert. Cranial nerves II through XII intact. Motor and sensory grossly within normal limits. Five out of 5 muscle strength in all muscle groups. Normal speech. Insight and judgment is limited Mood and behaviors appropriate Laboratory Laboratory Tests Test 03/25/17 12:43 White Blood Count 5.5 Red Blood Count 4.74 Hemoglobin 14.4 Bedside Hemoglobin 14.3 Hematocrit 41.5 Bedside Hematocrit 42.0 Mean Corpuscular Volume 87.6 Mean Corpuscular Hemoglobin 30.3 Mean Corpuscular Hemoglobin Concent 34.6 Red Cell Distribution Width 13.7 Platelet Count 204 Mean Platelet Volume 8.4 Neutrophils (%) (Auto) 42.2 Lymphocytes (%) (Auto) 36.9 Monocytes (%) (Auto) 12.0 Eosinophils (%) (Auto) 7.7 Basophils (%) (Auto) 1.2 Neutrophils # (Auto) 2.3 Lymphocytes # (Auto) 2.0 Monocytes # (Auto) 0.7 Eosinophils # (Auto) 0.4 Basophils # (Auto) 0.1 CBC Comment DIFF FINAL Differential Comment Prothrombin Time 9.9 Prothromb Time International Ratio 1.0 Activated Partial Thromboplast Time 20.4 Bedside Sodium 143 Bedside Potassium 3.1 Bedside Chloride 102 Bedside Blood Urea Nitrogen 9 Bedside Creatinine 0.8 Bedside Glucose 150 Calcium Level 7.9 Magnesium Level 1.8 Total Creatine Kinase 258 Creatine Kinase MB 1.2 Troponin I 0.05 B-Type Natriuretic Peptide 11 Result Diagram: 03/25/17 1243 Imaging Last Impressions Chest X-Ray 03/25/17 1240 Signed Impressions: Service Date/Time: Saturday, March 25, 2017 12:44 - CONCLUSION: 1. Cardiomegaly. 2. Mild central pulmonary congestion. Lavon Rowland MD Assessment and Plan Assessment and Plan Coronary artery disease with ST elevation GA with 2 stents placed in the LAD by Dr. Plummer Suspect cardiomyopathy will get echo Suspect hyperlipidemia we will get fasting lipids and place on statin Suspect hypertension will be on beta blockers and luis inhibitors if his blood pressure control her rate Congestive heart failure may need diuretics at discharge continue on anticoagulation with aspirin and Plavix or BRILLINTA OBESITY WEIGHT LOSS RECOMMENDED CHECK HGBA1C AND TSH, FREE T4 AND LIPIDS Code Status FULL CODE Discussed Condition With RN AND PT AND ER PHYSICIAN Problem Qualifiers (1) STEMI (ST elevation myocardial infarction): Qualified Codes: I21.3 - ST elevation (STEMI) myocardial infarction of unspecified site Km Harvey DO Mar 25, 2017 16:12
[2017-03-25] MEDS ORDERED: cloNIDine HCL 0.1 MG TAB PO PRN (16:30)
[2017-03-25] MEDS ORDERED: CANGRELOR INJ 50,000 MCG in SODIUM CHLOR 0.9% 250 ML INJ 250 ML IV SCH (17:00)
--- NOTE | 2017-03-25 17:38 | MA ---
cc: CRISTAL CARDENAS DATE: 03/25/2017. PROCEDURE PERFORMED: 1. Left heart catheterization. 2. Selective right and left coronary angiography. 3. Successful PCI / OTTONIEL to proximal left anterior descending. INDICATIONS FOR THE PROCEDURE: S-T elevation myocardial infarction. APPROACH: Right transfemoral. DESCRIPTION OF THE PROCEDURE IN DETAIL Consent signed. The patient was brought into the laborer shaft sinking in a fasting state for emergent percutaneous coronary intervention in the setting of a STEMI. The right groin was prepped and draped in the sterile fashion. Using 1% lidocaine for local anesthesia and a micropuncture kit, a 6-[place] sheath was inserted into the right common femoral artery. A right common femoral artery angiography was performed to confirm position of the sheath and then selective right and left coronary angiography was performed with a JR-4 diagnostic catheter and an EBU 3.5 guide. We identified the culprit lesion of the STEMI in the proximal left anterior descending right before the takeoff of the first diagonal. Heparin was given for IV anticoagulation. Then the left anterior descending was wired with a run-through wire which was anchored distally in the left anterior descending. The diagonal vessel was protected with a BMW wire. Then we direct we predilated the LAD lesion with a 2.58 balloon followed by insertion and deployment of a 3.0 x 15 drug-eluting stent with post dilation with a stent balloon. Final angiographic views revealed good stent position and expansion with CLARICE III flow and nonobstructive coronary artery disease. The patient tolerated the procedure without complications. Estimated blood loss was less than 10 mL. Total contrast used was 80 mL. The right groin access site was closed with a Perclose device. The patient was given Brilinta after the procedure and started on a drip of Cangrelor. RESULTS: ANGIOGRAPHY: 1. Right coronary artery: The right coronary artery is a dominant vessel giving off the PDA and a PLV branch. There is a 20% lesion distally in the right coronary artery. The right coronary artery has minimal luminal irregularities throughout. The PDA and the posterolateral branch are both patent. 2. Left main: The left main is patent with CLARICE III flow and it is giving off the left circumflex and the left anterior descending. 3. Left anterior descending: The left anterior descending is 100% occluded in the proximal segment. The 1st diagonal has a 60% lesion in its proximal segment 4. Left circumflex: The left circumflex artery has minimal luminal irregularities and has a 60% lesion proximally before the takeoff of the first obtuse marginal. The left circumflex is giving off two OM vessels which are patent with minimal luminal irregularities. CONCLUSION: Successful percutaneous coronary intervention to the proximal left anterior descending with a 3.0 x 15 drug-eluting stent. RECOMMENDATIONS: 1. Continue aggressive medical management for secondary prevention of coronary artery disease. 2. The patient will be on aspirin and Brilinta as well as aggressive medical management with beta-blockers, BETTY inhibitors, statins and long-acting nitrates as tolerated by blood pressure. 3. He should get an echocardiogram before discharge. 4. Admit to the [facility] for post cath care. MD ELIZABETH Sol/TONY /4:50 PM /5:14 PM [id number]
[2017-03-25] MEDS: METOPROLOL TARTRATE 25 MG TAB PO SCH (19:39)
[2017-03-25] MEDS: ATORVASTATIN 10 MG TAB PO SCH (19:41)
[2017-03-25] MEDS ORDERED: ACETAMINOPHEN 325 MG TAB PO PRN (21:15)
[2017-03-25] MEDS ORDERED: ACETAMINOPHEN/HYDROcodone 325 MG/10 MG TAB PO PRN (21:30)
[2017-03-25] MEDS ORDERED: ACETAMINOPHEN/HYDROcodone 325 MG/5 MG TAB PO PRN (21:30)
[2017-03-26] VITALS (25 sets, daily range): BP systolic 123–143; BP diastolic 60–82; PULSE 74–96; RESP 20; TEMP 98–98.4; O2SAT 93–99
[2017-03-26 06:15] LABS: AUTOMATED NEUTROPHIL # 6.7 TH/MM3 (1.8-7.7); BASOPHIL # 0.1 TH/MM3 (0-0.2); BASOPHIL % 0.7 % (0.0-2.0); EOSINOPHIL # 0.2 TH/MM3 (0-0.4); EOSINOPHIL % 2.4 % (0.0-4.0); HEMATOCRIT 39.9 % (39.0-51.0); HEMOGLOBIN 13.4 GM/DL (13.0-17.0); LYMPH % 14.8 % (9.0-44.0); LYMPHOCYTE # 1.3 TH/MM3 (1.0-4.8); MEAN CELL VOLUME 87.8 FL (80.0-100.0); MEAN CORPUSCULAR HEMOGLOBIN 29.6 PG (27.0-34.0); MEAN CORPUSCULAR HGB CONC 33.7 % (32.0-36.0); MEAN PLATELET VOLUME 8.8 FL (7.0-11.0); MONO % 7.5 % (0.0-8.0); MONOCYTE # 0.7 TH/MM3 (0-0.9); NEUT % 74.6 % (16.0-70.0); PLATELET COUNT 185 TH/MM3 (150-450); RED BLOOD COUNT 4.54 MIL/MM3 (4.50-5.90); RED CELL DISTRIBUTION WIDTH 13.6 % (11.6-17.2)
[2017-03-26 06:36] LABS: AST (GOT) 247 U/L (15-37); BICARBONATE 22.1 MEQ/L (21.0-32.0); BLOOD UREA NITROGEN 8 MG/DL (7-18); CHLORIDE 103 MEQ/L (98-107); CREATININE 0.68 MG/DL (0.60-1.30); GLOMERULAR FILTRATION RATE 121 ML/MIN (>89); GLUCOSE,RANDOM 113 MG/DL (74-106); MAGNESIUM 1.7 MG/DL (1.5-2.5); SODIUM (NA) 137 MEQ/L (136-145)
[2017-03-26 06:37] LABS: ALT (GPT) 76 U/L (12-78); CHOLESTEROL 191 MG/DL (120-200); TRIGLYCERIDES 163 MG/DL (42-150)
[2017-03-26 06:46] LABS: ALKALINE PHOSPHATASE 38 U/L (45-117); CHOLESTEROL/ HDL RATIO 6.06 RATIO; FREE T4 0.96 NG/DL (0.76-1.46); HDL CHOLESTEROL 31.5 MG/DL (40.0-60.0); LDL CHOLESTEROL 127 MG/DL (0-99); PHOSPHORUS 2.8 MG/DL (2.5-4.9); TOTAL BILIRUBIN ADULT 0.7 MG/DL (0.2-1.0); TOTAL PROTEIN 6.9 GM/DL (6.4-8.2)
[2017-03-26] MEDS ORDERED: IOHEXOL 350 MG/ML 50 ML BTL (for Cath Lab) OTHER ONE (07:51)
[2017-03-26] MEDS ORDERED: IOHEXOL 350 MG/ML 100 ML BTL (for Cath Lab) OTHER ONE (07:51)
[2017-03-26 09:37] LABS: HEMOGLOBIN A1C 5.6 % (4.3-6.0)
[2017-03-26] MEDS ORDERED: POTASSIUM CHLORIDE 10 MEQ CONTROLLED RELEASE TAB PO ONE (09:45)
--- NOTE | 2017-03-26 09:55 | PD.CARD.PN ---
Subjective Subjective Remarks no overnight events no CV complaints Chest pain free Objective Medications Current Medications Medications (Trade) Dose Ordered Sig/Leda Route Start Time Stop Time Status Last Admin (Aspirin Chew) 81 mg DAILY PO 03/26/17 09:00 (Brilinta) 90 mg BID PO 03/26/17 09:00 (Atropine Inj) 0.5 mg UNSCH PRN IV PUSH 03/25/17 14:30 (Zofran Inj) 4 mg Q4H PRN IV PUSH 03/25/17 14:30 (Lopressor) 12.5 mg BID PO 03/25/17 21:00 03/25/17 19:39 (Prinivil) 5 mg DAILY PO 03/26/17 09:00 (Lipitor) 10 mg HS PO 03/25/17 21:00 03/25/17 19:41 (Catapres) 0.1 mg Q4HR PRN PO 03/25/17 16:30 (Pneumovax-23 Inj) 25 mcg ONCE ONCE IM 03/26/17 10:00 03/26/17 10:01 (Tylenol) 650 mg Q4H PRN PO 03/25/17 21:15 03/25/17 21:46 (Langley 5-325 Mg) 1 tab Q4H PRN PO 03/25/17 21:30 03/25/17 22:34 (Langley 10-325 Mg) 1 tab Q4H PRN PO 03/25/17 21:30 03/26/17 03:26 Vital Signs / I&O Vital Signs Date Time Temp Pulse Resp B/P (MAP) Pulse Ox O2 Delivery O2 Flow Rate FiO2 03/26/17 06:00 76 03/26/17 05:00 74 03/26/17 04:00 Nasal Cannula 2.00 03/26/17 04:00 98.4 77 20 127/77 (94) 96 03/26/17 04:00 77 03/26/17 03:00 85 03/26/17 02:00 82 03/26/17 01:00 86 03/26/17 00:00 Nasal Cannula 2.00 03/26/17 00:00 98.2 77 20 133/80 (97) 97 03/26/17 00:00 77 03/25/17 23:00 84 03/25/17 22:00 79 03/25/17 21:00 92 03/25/17 20:00 98.0 79 20 135/81 (99) 97 03/25/17 20:00 79 03/25/17 20:00 Nasal Cannula 2.00 03/25/17 19:00 84 20 122/84 (97) 03/25/17 18:00 92 03/25/17 17:30 87 18 136/83 (100) 03/25/17 17:00 86 18 125/78 (94) 03/25/17 17:00 88 03/25/17 16:30 87 18 126/80 (95) 97 03/25/17 16:00 86 03/25/17 15:00 85 03/25/17 15:00 83 20 131/82 (98) 96 03/25/17 14:48 91 18 140/85 (103) 97 03/25/17 13:20 03/25/17 13:14 87 16 141/77 (98) 98 Nasal Cannula 2.00 03/25/17 12:40 98 Nasal Cannula 2.00 03/25/17 12:40 74 03/25/17 12:39 98.3 75 16 128/78 (95) 98 I/O 03/25/17 03/25/17 03/25/17 03/26/17 03/26/17 03/26/17 07:00 15:00 23:00 07:00 15:00 23:00 Intake Total 100 ml 550 ml 700 ml Output Total 2500 ml 1000 ml Balance 100 ml -1950 ml -300 ml Intake Oral 50 ml 700 ml IV Total 100 ml 500 ml Output Urine Total 2500 ml 1000 ml # Bowel Movements 0 Physical Exam GENERAL: Well-nourished, well-developed patient. SKIN: Warm and dry. HEAD: Normocephalic. EYES: No scleral icterus. No injection or drainage. NECK: Supple, trachea midline. No JVD or lymphadenopathy. CARDIOVASCULAR: Regular rate and rhythm without murmurs, gallops, or rubs. RESPIRATORY: Breath sounds equal bilaterally. No accessory muscle use. GASTROINTESTINAL: Abdomen soft, non-tender, nondistended. EXTREMITIES: No cyanosis, or edema. NEUROLOGICAL: Awake, alert, and oriented x 3. Non-focal. Laboratory Laboratory Tests Test 03/25/17 12:43 03/26/17 04:16 White Blood Count 5.5 TH/MM3 9.0 TH/MM3 Red Blood Count 4.74 MIL/MM3 4.54 MIL/MM3 Hemoglobin 14.4 GM/DL 13.4 GM/DL Bedside Hemoglobin 14.3 G/DL Hematocrit 41.5 % 39.9 % Bedside Hematocrit 42.0 % Mean Corpuscular Volume 87.6 FL 87.8 FL Mean Corpuscular Hemoglobin 30.3 PG 29.6 PG Mean Corpuscular Hemoglobin Concent 34.6 % 33.7 % Red Cell Distribution Width 13.7 % 13.6 % Platelet Count 204 TH/MM3 185 TH/MM3 Mean Platelet Volume 8.4 FL 8.8 FL Neutrophils (%) (Auto) 42.2 % 74.6 % Lymphocytes (%) (Auto) 36.9 % 14.8 % Monocytes (%) (Auto) 12.0 % 7.5 % Eosinophils (%) (Auto) 7.7 % 2.4 % Basophils (%) (Auto) 1.2 % 0.7 % Neutrophils # (Auto) 2.3 TH/MM3 6.7 TH/MM3 Lymphocytes # (Auto) 2.0 TH/MM3 1.3 TH/MM3 Monocytes # (Auto) 0.7 TH/MM3 0.7 TH/MM3 Eosinophils # (Auto) 0.4 TH/MM3 0.2 TH/MM3 Basophils # (Auto) 0.1 TH/MM3 0.1 TH/MM3 CBC Comment DIFF FINAL DIFF FINAL Differential Comment Prothrombin Time 9.9 SEC Prothromb Time International Ratio 1.0 RATIO Activated Partial Thromboplast Time 20.4 SEC Bedside Sodium 143 MMOL/L Bedside Potassium 3.1 MMOL/L Bedside Chloride 102 MMOL/L Bedside Blood Urea Nitrogen 9 MG/DL Bedside Creatinine 0.8 MG/DL Bedside Glucose 150 MG/DL Calcium Level 7.9 MG/DL 8.0 MG/DL Magnesium Level 1.8 MG/DL 1.7 MG/DL Total Creatine Kinase 258 U/L Creatine Kinase MB 1.2 NG/ML Troponin I 0.05 NG/ML B-Type Natriuretic Peptide 11 PG/ML Blood Urea Nitrogen 8 MG/DL Creatinine 0.68 MG/DL Random Glucose 113 MG/DL Total Protein 6.9 GM/DL Albumin 3.0 GM/DL Phosphorus Level 2.8 MG/DL Alkaline Phosphatase 38 U/L Aspartate Amino Transf (AST/SGOT) 247 U/L Alanine Aminotransferase (ALT/SGPT) 76 U/L Total Bilirubin 0.7 MG/DL Sodium Level 137 MEQ/L Potassium Level 3.2 MEQ/L Chloride Level 103 MEQ/L Carbon Dioxide Level 22.1 MEQ/L Anion Gap 12 MEQ/L Estimat Glomerular Filtration Rate 121 ML/MIN Triglycerides Level 163 MG/DL Cholesterol Level 191 MG/DL LDL Cholesterol 127 MG/DL HDL Cholesterol 31.5 MG/DL Cholesterol/HDL Ratio 6.06 RATIO Free Thyroxine 0.96 NG/DL Thyroid Stimulating Hormone 3rd Gen 0.906 uIU/ML Imaging Last 24 hours Impressions Chest X-Ray 03/25/17 1240 Signed Impressions: Service Date/Time: Saturday, March 25, 2017 12:44 - CONCLUSION: 1. Cardiomegaly. 2. Mild central pulmonary congestion. Lavon Rowland MD Assessment and Plan Problem List: (1) STEMI (ST elevation myocardial infarction) ICD Codes: I21.3 - ST elevation (STEMI) myocardial infarction of unspecified site Status: Acute Plan: s/p PCI/OTTONIEL to LAD in the setting of STEMI No overnight events Chest pain free Ambulating without difficulty Recs: 1. DAPT with ASA and Brilinta 2. BB, ACEI, statins 3. 2Decho 4. Encourage out of bed and ambulation 5. Follow up with cardiology upon discharge If continues to be stable d/c home tomorrow. (2) Hypokalemia ICD Codes: E87.6 - Hypokalemia Status: Acute Problem Qualifiers (1) STEMI (ST elevation myocardial infarction): Qualified Codes: I21.3 - ST elevation (STEMI) myocardial infarction of unspecified site Sae Dozier MD Mar 26, 2017 09:55
[2017-03-26] MEDS ORDERED: PNEUMOCOCCAL POLYVALENT INJ 25 MCG/0.5 ML SYR IM ONE (10:00)
[2017-03-26] MEDS: LISINOPRIL 5 MG TAB PO SCH (11:06)
[2017-03-26] MEDS: METOPROLOL TARTRATE 25 MG TAB PO SCH ×2 (11:07→20:49)
[2017-03-26] MEDS: TICAGRELOR 90 MG TAB PO SCH ×2 (11:07→20:49)
[2017-03-26] MEDS: ASPIRIN 81 MG CHEW TAB PO SCH (11:07)
--- NOTE | 2017-03-26 12:38 | ECHRPT ---
Indication: CORONARY ATHEROSCLEROSIS CONCLUSIONS Normal left ventricular size. Moderate concentric left ventricular hypertrophy. The left ventricular systolic function is grossly normal on limited imaging. The interatrial septum not well visualized. The pulmonary valve is not well visualized. BP: 127 / 77 HR: Rhythm: Sinus MEASUREMENTS (Male / Female) Normal Values Technical Quality:Fair 2D ECHO LV Diastolic Diameter PLAX 5.1 cm 4.2 - 5.9 / 3.9 - 5.3 cm LV Systolic Diameter PLAX 3.1 cm IVS Diastolic Thickness 1.4 cm 0.6 - 1.0 / 0.6 - 0.9 cm LVPW Diastolic Thickness 1.4 cm 0.6 - 1.0 / 0.6 - 0.9 cm LV Relative Wall Thickness 0.6 RV Internal Dim ED PLAX 3.2 cm LVOT Diameter 2.0 cm Aortic Root Diameter 2.9 cm LA Systolic Diameter LX 3.6 cm 3.0 - 4.0 / 2.7 - 3.8 cm M-MODE AV Cusp Separation MM 2.2 cm DOPPLER AV Peak Velocity 131.0 cm/s AV Peak Gradient 6.9 mmHg AV Mean Gradient 4.0 mmHg AV Velocity Time Integral 20.0 cm LVOT Peak Velocity 120.0 cm/s LVOT Peak Gradient 5.8 mmHg LVOT Velocity Time Integral 23.0 cm AV Area Cont Eq vti 3.6 cm AV Area Cont Eq pk 2.9 cm Mitral E Point Velocity 93.8 cm/s Mitral A Point Velocity 61.7 cm/s Mitral E to A Ratio 1.5 LV E' Lateral Velocity 11.7 cm/s Mitral E to LV E' Lateral Ratio 8.0 LV E' Septal Velocity 9.3 cm/s Mitral E to LV E' Septal Ratio 10.1 PV Peak Velocity 60.2 cm/s PV Peak Gradient 1.4 mmHg FINDINGS LEFT VENTRICLE Normal left ventricular size. Moderate concentric left ventricular hypertrophy. The left ventricular systolic function is grossly normal on limited imaging. The left ventricular systolic function is normal with an estimated ejection fraction in the range of 60-65%. RIGHT VENTRICLE Normal right ventricular size and systolic function. LEFT ATRIUM The left atrial size is normal. RIGHT ATRIUM The right atrial size is normal. ATRIAL SEPTUM The interatrial septum not well visualized. AORTA The aortic root and proximal ascending aorta are normal in size on limited imaging. MITRAL VALVE Structurally normal mitral valve. No mitral valve stenosis or regurgitation. AORTIC VALVE Trileaflet aortic valve. No aortic valve stenosis or regurgitation. TRICUSPID VALVE Structurally normal tricuspid valve. No tricuspid valve stenosis or regurgitation. PULMONARY VALVE The pulmonary valve is not well visualized. VESSELS The inferior vena cava is normal in size. PERICARDIUM No pericardial effusion. Cabrera Sue MD, FACC (Electronically Signed) Final Date:26 March 2017 12:37
--- NOTE | 2017-03-26 19:01 | EKG ---
Date Performed: 03/25/2017 Time Performed: 12:39:36 PTAGE: 56 years EKG: Sinus rhythm WITH FIRST DEGREE AV BLOCK SEPTAL MYOCARDIAL INFARCTION ACUTE [place] NO PREVIOUS TRACING DOCTOR: Dai Hampton Interpretating Date/Time 03/26/2017 19:00:25
--- NOTE | 2017-03-26 19:02 | EKG ---
Date Performed: 03/25/2017 Time Performed: 15:49:28 PTAGE: 56 years EKG: Sinus rhythm . ANTEROSEPTAL INFARCT - POSSIBLY ACUTE STEMI Compared to prior tracing no significant change Abnormal ECG PREVIOUS TRACING : 03/25/2017 12.39 DOCTOR: Dai Hampton Interpretating Date/Time 03/26/2017 19:01:07
[2017-03-26] MEDS: ATORVASTATIN 10 MG TAB PO SCH (20:49)
--- NOTE | 2017-03-26 23:25 | HHI.PR ---
Subjective Remarks Patient seen this morning around 10 AM. Says he is feeling all right. Denies any chest pain or shortness breath. Objective Vital Signs Date Time Temp Pulse Resp B/P (MAP) Pulse Ox O2 Delivery O2 Flow Rate FiO2 03/26/17 20:00 98.0 95 20 123/60 (81) 93 03/26/17 20:00 90 03/26/17 20:00 Room Air 03/26/17 18:00 80 03/26/17 17:00 80 03/26/17 16:30 82 20 133/82 (99) 99 03/26/17 16:00 82 03/26/17 15:00 84 03/26/17 14:00 86 03/26/17 13:00 88 03/26/17 12:00 83 03/26/17 12:00 20 130/80 (97) 98 03/26/17 11:00 80 03/26/17 10:00 80 03/26/17 09:00 99 Room Air 03/26/17 09:00 98.2 80 20 143/74 (97) 98 03/26/17 09:00 84 03/26/17 08:00 83 03/26/17 07:00 80 03/26/17 06:00 76 03/26/17 05:00 74 03/26/17 04:00 Nasal Cannula 2.00 03/26/17 04:00 98.4 77 20 127/77 (94) 96 03/26/17 04:00 77 03/26/17 03:00 85 03/26/17 02:00 82 03/26/17 01:00 86 03/26/17 00:00 Nasal Cannula 2.00 03/26/17 00:00 98.2 77 20 133/80 (97) 97 03/26/17 00:00 77 I/O 03/26/17 03/26/17 03/26/17 03/27/17 03/27/17 03/27/17 07:00 15:00 23:00 07:00 15:00 23:00 Intake Total 700 ml Output Total 1000 ml Balance -300 ml Intake Oral 700 ml Output Urine Total 1000 ml # Bowel Movements 0 Result Diagram: 03/26/17 0416 03/26/17415 Objective Remarks GENERAL: patient sitting up in bed. Appears comfortable. SKIN: Warm and dry. HEAD: Normocephalic. EYES: No scleral icterus. No injection or drainage. NECK: Supple, trachea midline. No JVD. CARDIOVASCULAR: Regular rate and rhythm without murmurs, gallops, or rubs. RESPIRATORY: Breath sounds equal bilaterally. No accessory muscle use. GASTROINTESTINAL: Abdomen soft, non-tender, nondistended. MUSCULOSKELETAL: No cyanosis, or edema. BACK: Nontender without obvious deformity. No CVA tenderness. A/P Assessment and Plan Coronary artery disease with ST elevation [place] with 2 stents placed in the LAD by Dr. Zamora -Status post echocardiogram with normal ejection fraction. If stable, discharge home tomorrow. //Suspect hyperlipidemia we will get fasting lipids and place on statin -LDL 127. Continue statin //Hypokalemia. Potassium 3.2. Replaced. Continue to monitor. //Suspect hypertension will be on beta blockers and luis inhibitors if his blood pressure control her rate -Blood pressure acceptable. Continue current regimen. continue on anticoagulation with aspirin and BRILLINTA Discharge Planning if stable, discharge home tomorrow. Shailesh Harman MD Mar 26, 2017 23:25
[2017-03-27] VITALS (13 sets, daily range): BP systolic 110–122; BP diastolic 70–81; PULSE 74–98; RESP 18–20; TEMP 98.2–99.2; O2SAT 96
[2017-03-27 07:00] LABS: AUTOMATED NEUTROPHIL # 5.3 TH/MM3 (1.8-7.7); BASOPHIL % 0.3 % (0.0-2.0); EOSINOPHIL # 0.3 TH/MM3 (0-0.4); EOSINOPHIL % 4.2 % (0.0-4.0); HEMATOCRIT 41.2 % (39.0-51.0); HEMOGLOBIN 14.4 GM/DL (13.0-17.0); LYMPH % 18.8 % (9.0-44.0); LYMPHOCYTE # 1.5 TH/MM3 (1.0-4.8); MEAN CELL VOLUME 87.2 FL (80.0-100.0); MEAN CORPUSCULAR HEMOGLOBIN 30.5 PG (27.0-34.0); MEAN PLATELET VOLUME 9.2 FL (7.0-11.0); MONO % 9.9 % (0.0-8.0); MONOCYTE # 0.8 TH/MM3 (0-0.9); NEUT % 66.8 % (16.0-70.0); PLATELET COUNT 198 TH/MM3 (150-450); RED BLOOD COUNT 4.73 MIL/MM3 (4.50-5.90); RED CELL DISTRIBUTION WIDTH 13.8 % (11.6-17.2); WHITE BLOOD COUNT 7.9 TH/MM3 (4.0-11.0)
[2017-03-27 07:28] LABS: ALBUMIN 3.1 GM/DL (3.4-5.0); BICARBONATE 26.3 MEQ/L (21.0-32.0); CALCIUM 8.8 MG/DL (8.5-10.1); CREATININE 0.7 MG/DL (0.60-1.30); MAGNESIUM 2.1 MG/DL (1.5-2.5); PHOSPHORUS 2.5 MG/DL (2.5-4.9)
--- NOTE | 2017-03-27 08:30 | PD.CARD.PN ---
Subjective Subjective Remarks no overnight events no CV complaints Chest pain free Objective Medications Current Medications Medications (Trade) Dose Ordered Sig/Leda Route Start Time Stop Time Status Last Admin (Aspirin Chew) 81 mg DAILY PO 03/26/17 09:00 03/26/17 11:07 (Brilinta) 90 mg BID PO 03/26/17 09:00 03/26/17 20:49 (Atropine Inj) 0.5 mg UNSCH PRN IV PUSH 03/25/17 14:30 (Zofran Inj) 4 mg Q4H PRN IV PUSH 03/25/17 14:30 (Lopressor) 12.5 mg BID PO 03/25/17 21:00 03/26/17 20:49 (Prinivil) 5 mg DAILY PO 03/26/17 09:00 03/26/17 11:06 (Lipitor) 10 mg HS PO 03/25/17 21:00 03/26/17 20:49 (Catapres) 0.1 mg Q4HR PRN PO 03/25/17 16:30 (Tylenol) 650 mg Q4H PRN PO 03/25/17 21:15 03/25/17 21:46 (Brillion 5-325 Mg) 1 tab Q4H PRN PO 03/25/17 21:30 03/25/17 22:34 (Brillion 10-325 Mg) 1 tab Q4H PRN PO 03/25/17 21:30 03/26/17 03:26 Vital Signs / I&O Vital Signs Date Time Temp Pulse Resp B/P (MAP) Pulse Ox O2 Delivery O2 Flow Rate FiO2 03/27/17 07:29 Room Air 03/27/17 07:24 98.2 85 18 122/81 (95) 96 03/27/17 06:00 92 03/27/17 05:00 76 03/27/17 05:00 98.6 88 20 116/78 (91) 96 03/27/17 04:00 74 03/27/17 03:00 76 03/27/17 02:00 78 03/27/17 01:00 84 03/27/17 00:00 91 03/27/17 00:00 99.2 91 20 110/70 (83) 96 03/26/17 23:00 82 03/26/17 22:00 82 03/26/17 21:00 94 03/26/17 20:00 98.0 95 20 123/60 (81) 93 03/26/17 20:00 90 03/26/17 20:00 Room Air 03/26/17 19:00 96 03/26/17 18:00 80 03/26/17 17:00 80 03/26/17 16:30 82 20 133/82 (99) 99 03/26/17 16:00 82 03/26/17 15:00 84 03/26/17 14:00 86 03/26/17 13:00 88 03/26/17 12:00 83 03/26/17 12:00 20 130/80 (97) 98 03/26/17 11:00 80 03/26/17 10:00 80 03/26/17 09:00 99 Room Air 03/26/17 09:00 98.2 80 20 143/74 (97) 98 03/26/17 09:00 84 I/O 03/26/17 03/26/17 03/26/17 03/27/17 03/27/17 03/27/17 06:59 14:59 22:59 06:59 14:59 22:59 Intake Total 700 ml Output Total 1000 ml Balance -300 ml Intake Oral 700 ml Output Urine Total 1000 ml # Bowel Movements 0 Physical Exam GENERAL: Well-nourished, well-developed patient. SKIN: Warm and dry. HEAD: Normocephalic. EYES: No scleral icterus. No injection or drainage. NECK: Supple, trachea midline. No JVD or lymphadenopathy. CARDIOVASCULAR: Regular rate and rhythm without murmurs, gallops, or rubs. RESPIRATORY: Breath sounds equal bilaterally. No accessory muscle use. GASTROINTESTINAL: Abdomen soft, non-tender, nondistended. EXTREMITIES: No cyanosis, or edema. NEUROLOGICAL: Awake, alert, and oriented x 3. Non-focal. Laboratory Laboratory Tests Test 03/27/17 05:36 White Blood Count 7.9 TH/MM3 Red Blood Count 4.73 MIL/MM3 Hemoglobin 14.4 GM/DL Hematocrit 41.2 % Mean Corpuscular Volume 87.2 FL Mean Corpuscular Hemoglobin 30.5 PG Mean Corpuscular Hemoglobin Concent 35.0 % Red Cell Distribution Width 13.8 % Platelet Count 198 TH/MM3 Mean Platelet Volume 9.2 FL Neutrophils (%) (Auto) 66.8 % Lymphocytes (%) (Auto) 18.8 % Monocytes (%) (Auto) 9.9 % Eosinophils (%) (Auto) 4.2 % Basophils (%) (Auto) 0.3 % Neutrophils # (Auto) 5.3 TH/MM3 Lymphocytes # (Auto) 1.5 TH/MM3 Monocytes # (Auto) 0.8 TH/MM3 Eosinophils # (Auto) 0.3 TH/MM3 Basophils # (Auto) 0.0 TH/MM3 CBC Comment AUTO DIFF Blood Urea Nitrogen 8 MG/DL Creatinine 0.70 MG/DL Random Glucose 95 MG/DL Albumin 3.1 GM/DL Calcium Level 8.8 MG/DL Phosphorus Level 2.5 MG/DL Magnesium Level 2.1 MG/DL Sodium Level 140 MEQ/L Potassium Level 3.5 MEQ/L Chloride Level 105 MEQ/L Carbon Dioxide Level 26.3 MEQ/L Anion Gap 9 MEQ/L Estimat Glomerular Filtration Rate 117 ML/MIN Assessment and Plan Problem List: (1) STEMI (ST elevation myocardial infarction) ICD Codes: I21.3 - ST elevation (STEMI) myocardial infarction of unspecified site Status: Acute Plan: No overnight events Chest pain free Ambulating without difficulty EF 60% Recs: 1. DAPT with ASA and Brilinta 2. BB, ACEI, statins 3. Encourage out of bed and ambulation 4. Follow up with cardiology upon discharge Stable from CV standpoint to be d/c home tomorrow. (2) Hypokalemia ICD Codes: E87.6 - Hypokalemia Status: Acute Problem Qualifiers (1) STEMI (ST elevation myocardial infarction): Qualified Codes: I21.3 - ST elevation (STEMI) myocardial infarction of unspecified site Sae Dozier MD Mar 27, 2017 08:30
[2017-03-27] MEDS: TICAGRELOR 90 MG TAB PO SCH (08:55)
[2017-03-27] MEDS: ASPIRIN 81 MG CHEW TAB PO SCH (08:56)
[2017-03-27] MEDS: LISINOPRIL 5 MG TAB PO SCH (08:56)
[2017-03-27] MEDS: METOPROLOL TARTRATE 25 MG TAB PO SCH (08:57)
[2017-03-27] MEDS ORDERED: BRIL90TA PO (09:52)
[2017-03-27] MEDS ORDERED: METO25TA3 PO (09:52)
[2017-03-27] MEDS ORDERED: LIPI10TA PO (09:52)
[2017-03-27] MEDS ORDERED: ASPI81 PO (09:52)
[2017-03-27] MEDS ORDERED: LISI-519 PO (09:52)
--- NOTE | 2017-03-27 19:16 | HHI.DS ---
Discharge Summary Admission Date Mar 25, 2017 at 12:53 Discharge Date: Mar 27, 2017 Admitting Diagnosis STEMI (1) STEMI (ST elevation myocardial infarction) ICD Code: I21.3 - ST elevation (STEMI) myocardial infarction of unspecified site Status: Acute (2) Hypokalemia ICD Code: E87.6 - Hypokalemia Status: Acute Procedures Card. catheterization Brief History - From Admission Patient is a 56 years old male who presented to the emergency department here at [facility] with complaint of chest pain. Patient stated that the pain started about 45 minutes prior to arrival. Patient was chopping wood when it happened. Patient stated the pain was in the left side of chest with pain and substernal chest pressure without radiation. Patient denies palpitation. Patient states that he had nausea and diaphoresis with the chest pain. Patient denies history of CAD. Patient denies history hypertension, diabetes, hyperlipidemia. Patient is a nonsmoker. Patient has family history of heart disease father had coronary artery disease and CABG 4 vessels. Patient states that he has not seen a physician for an extended time. Patient is not on any routine medication. Patient is not allergic to any medication. EMS was called. Patient was given aspirin 81 mg 3. Patient was given nitroglycerin sublingual 3. On a scale of 1-10 the chest pain is a 6. Patient was found to have an ST elevation [place] and was emergently taken to the cardiac catheter lab by Dr. Zamora. Patient was found to have stenosis of the LAD and underwent 2 stents to the LAD by Dr. Zamora in the cardiac catheterization lab CBC/BMP: 03/27/17 0536 03/27/17 0536 Significant Findings Laboratory Tests Test 03/25/17 12:43 03/26/17 04:16 03/27/17 05:36 Monocytes (%) (Auto) 12.0 % (0.0-8.0) 9.9 % (0.0-8.0) Eosinophils (%) (Auto) 7.7 % (0.0-4.0) 4.2 % (0.0-4.0) Activated Partial Thromboplast Time 20.4 SEC (24.3-30.1) Bedside Potassium 3.1 MMOL/L (3.6-5.0) Bedside Glucose 150 MG/DL (68-110) Calcium Level 7.9 MG/DL (8.5-10.1) 8.0 MG/DL (8.5-10.1) Neutrophils (%) (Auto) 74.6 % (16.0-70.0) Random Glucose 113 MG/DL (74-106) Albumin 3.0 GM/DL (3.4-5.0) 3.1 GM/DL (3.4-5.0) Alkaline Phosphatase 38 U/L (45-117) Aspartate Amino Transf (AST/SGOT) 247 U/L (15-37) Potassium Level 3.2 MEQ/L (3.5-5.1) Triglycerides Level 163 MG/DL (42-150) LDL Cholesterol 127 MG/DL (0-99) HDL Cholesterol 31.5 MG/DL (40.0-60.0) Imaging Last Impressions Chest X-Ray 03/25/17 1240 Signed Impressions: Service Date/Time: Saturday, March 25, 2017 12:44 - CONCLUSION: 1. Cardiomegaly. 2. Mild central pulmonary congestion. Lavon Rowland MD Pt update on day of discharge Patient says he is feeling well. Denies any chest pain or shortness of breath. Feels like going home. Hospital Course Coronary artery disease with ST elevation [place] with 2 stents placed in the LAD by Dr. Zamora -Status post echocardiogram with normal ejection fraction. If stable, discharge home tomorrow. //Suspect hyperlipidemia we will get fasting lipids and place on statin -LDL 127. Continue statin //Hypokalemia. Potassium 3.2. Replaced. Continue to monitor. //Suspect hypertension will be on beta blockers and luis inhibitors if his blood pressure control her rate -Blood pressure acceptable. Continue current regimen. continue on anticoagulation with aspirin and BRILLINTA Pt Condition on Discharge: Good Discharge Disposition: Discharge Home Discharge Time: > 30 minutes Discharge Instructions DIET: Follow Instructions for: Heart Healthy Diet Activities you can perform: Regular-No Restrictions Follow up Referrals: Cardiology - 2 Weeks with Sae Dozier MD PCP Follow-up - 1 Week New Medications: Aspirin (Tgt Aspirin) 81 Mg Chw 81 MG PO DAILY for heart for 30 Days, EA Atorvastatin (Lipitor) 10 Mg Tab 10 MG PO HS for heart for 30 Days, TAB Lisinopril (Lisinopril) 5 Mg Tab 5 MG PO DAILY for heart for 30 Days, #30 TAB Metoprolol Tartrate (Metoprolol Tartrate) 25 Mg Tab 12.5 MG PO BID for heart for 30 Days, TAB Ticagrelor (Brilinta) 90 Mg Tab 90 MG PO BID for heart for 30 Days, #60 TAB Shailesh Harman MD Mar 27, 2017 19:16
== END 2017-03-27 12:12 | disposition home or self-care (01) | DRG 247 ==
LOC: NEPE 12:36 → NEDA 12:53 → HCIS 14:41
PROVIDERS: ADMIT Internal Medicine; ATTEND Internal Medicine
PROC: 027034Z Dilation of Coronary Artery, One Artery with Drug-eluting Intraluminal Device, Percutaneous Approach (ICD-10-PCS; principal; 2017-03-25)
PROC: 4A023N7 Measurement of Cardiac Sampling and Pressure, Left Heart, Percutaneous Approach (ICD-10-PCS; 2017-03-25)
PROC: B2111ZZ Fluoroscopy of Multiple Coronary Arteries using Low Osmolar Contrast (ICD-10-PCS; 2017-03-25)
PROC: B41F1ZZ Fluoroscopy of Right Lower Extremity Arteries using Low Osmolar Contrast (ICD-10-PCS; 2017-03-25)
DX: I21.09 ST elevation (STEMI) myocardial infarction involving other coronary artery of anterior wall (principal); I25.119 Atherosclerotic heart disease of native coronary artery with unspecified angina pectoris; I50.9 Heart failure, unspecified; E87.6 Hypokalemia; Z82.49 Family history of ischemic heart disease and other diseases of the circulatory system; F10.10 Alcohol abuse, uncomplicated
CPT/HCPCS: 71045; 80053; 80061; 80069; 82310; 82435; 82550; 82552; 82565; 82947; 83036; 83735; 83880; 84100; 84132; 84295; 84439; 84443; 84484; 84520; 85025; 85610; 85730; 90732; 92941; 93005; 93306; 93454; 94618; 96374; 99152; 99153; C1725; C1760; C1769; C1874; C1887; C1893; C9460; G0269; J0583; J1644; J1940; J2250; J2270; J3010; J3480; J7050; Q9967